=== PATIENT | female | born 1995 | race Caucasian/White ===

== ENCOUNTER 2019-10-24 06:34 | Inpatient (IN) ==
[2019-10-24 07:11] LABS: Hematocrit 34.3 % (37.0-47.0); Hemoglobin 11.4 gm/dL (12.5-16.0); Mean Cell Volume 82.7 fl (78-100); Mean Corpuscular Hemoglobin 27.5 pg (27-31); Mean Corpuscular Hgb Conc 33.2 g/dl (32-36); Mean Platelet Volume 10.7 fl (8-12.5); Neutrophil # 4.5 K/mm3 (1.3-6.0); Neutrophil % 68.5 % (42-75.0); Platelet Count 211 K/mm3 (150-450); Red Blood Count 4.15 M/mm3 (4.2-5.4); Red Cell Distribution Width 13.6 % (11.5-14.0); White Blood Count 6.6 K/mm3 (4.0-10.5)
[2019-10-24 07:19] LABS: Random Urine Total Protein 29.1 mg/dL (0-12)
[2019-10-24 07:21] LABS: Albumin * 2.5 gm/dl (3.4-5.0); Anion Gap 14.6 mmol/L (6.8-13.8); BUN/Creatinine Ratio 9.9 (9.0-21.6); Bilirubin, Total 0.1 mg/dL (0.0-1.1); Ca. Corrected For Albumin 8.4 mg/dL (8.4-10.2); Calcium * 7.5 mg/dL (7.9-10.9); Carbon Dioxide 22.2 mmol/L (24-32.6); Potassium 3.8 mmol/L (3.4-4.6); Total Protein 5.9 gm/dL (6.2-8.2)
[2019-10-24] MEDS ORDERED: BETAMETHASONE ACETATE,SOD PHOS 6 MG/ML VIAL IM ONE (07:25)
[2019-10-24] MEDS ORDERED: ACETAMINOPHEN 500 MG TABLET PO ONE (12:48)
--- NOTE | 2019-10-24 12:51 | HP ---
Chief Complaint - Chief Complaint Date of Service: 10/24/19 Time of Service: 12:33 Chief Complaint: elevated BPs History of Present Illness: 24 yo at 36 6/7 weeks presents to L&D from home where her BPs for the past several hours have been running 150-160s/90-108. This am BPs were 155/106 and 162/108 at home. Upon arrival here her BP was 138/90. Over the past few hours of observation her BPs have ranged from a low 130/75 to high of 155/96 with most in the 140's/90's. Denies epigastric pain or visual changes. She did not have a headache till just now which she rates at 5/10. Plts, liver enzymes, and Pr/Cr WNL. This complicated by anxiety, ADHD, bipolar disorder, migraines, GHTN, h/o preeclampsia, prior c/s x 2, and superficial thrombosis of LLE. S/P betamethasone 12 mg at 0820. Rh positive Rubella immune GBS negative. Medical History (Last Reviewed 10/24/19 @ 12:40 by Rosalino Schultz DO) Acute superficial venous thrombosis of left lower extremity (Resolved) possible DVT. Records requested to clarify. Eczema (Chronic) Onset Date: Unknown Sinusitis (Chronic) Onset Date: Unknown Severe anxiety with panic (Chronic) Onset Date: Unknown Bipolar disorder (manic depression) (Chronic) Onset Date: Unknown ADHD (Chronic) Onset Date: Unknown Migraines (Chronic) Onset Date: Unknown Rash Onset Date: ~11/2018 Itchy rash all over body since 11/2018 (since pt moved here from [place] in 10/05) Body piercing Onset Date: Unknown Tattoos Onset Date: Unknown Wears glasses Onset Date: Unknown DVT (deep venous thrombosis) Onset Date: ~2017 Left calf-post DVT vs superficial venous thrombosis. Obtaining records to confirm. Fractured coccyx Onset Date: 05/08/18 Preeclampsia Onset Date: ~2015 2015 & 2017 Surgical History: Surgical History (Last Reviewed 10/24/19 @ 12:40 by Rosalino Schultz DO) History of placement of ear tubes Onset Date: ~1999 Previous section Onset Date: 12/21/[id number], distress. 01/21/2018-Rpt Family History: Family History (Last Reviewed 10/24/19 @ 12:40 by Rosalino Schultz DO) Mother Heart problem Bipolar disorder Anxiety Depression Pacemaker Father Alive and well Social History: (Last Reviewed 10/24/19 @ 12:40 by Rosalino Schultz DO) Social History: adopted: No chcf: No Marital status: lives independently: Yes household members: spouse, children number of children: 2 current occupational status: other current occupational exposures/hazards: No Highest education level completed: Associate degree: academi Sexually Active: Yes Service: No Tobacco: Smoking Status: Never smoker Alcohol: alcohol intake: current alcohol intake frequency: holiday/special occasion details: No alcohol since + UPT Substance Use: substance use type: does not use Dietary Habits: caffeine: Yes caffeine comment: 1/day Type: carbonated beverages, coffee Exercise: frequency: daily duration: > 90 minutes/day Padmaja/Mosque: agree to transfusion: Yes Review Of Systems (GEN) - Review of Systems Generalized/Overall Review: Present: No Symptoms Reported EENTM: Present: No Symptoms Reported Respiratory: Present: No Symptoms Reported Cardiac: Present: No Symptoms Reported Abdominal: Present: No Symptoms Reported Genitourinary: Present: No Symptoms Reported Musculoskeletal: Present: No Symptoms Reported Neurological: Present: Headache Skin: Present: No Symptoms Reported Endocrine: Present: No Symptoms Reported Immunizations: IMMUNIZATION HX Immunizations Up to Date Yes History of Influenza Vaccine No Hx Pneumococcal Vaccination No Allergies/Adverse Reactions: Allergies Allergy/AdvReac Type Severity Reaction Status Date / Time No Known Allergies Allergy Verified 10/24/19 07:14 Home Medications: HOME MEDICATIONS triamcinolone acetonide 0.1 % topical cream 1 applic TP BID #15 g 01/21/19 [Last Taken 10/21/19] folic acid 20 mg capsule 20 mg PO DAILY 04/27/19 [Last Taken 10/23/19] aspirin 81 mg chewable tablet 81 mg PO DAILY 06/01/19 [Last Taken 10/23/19] Magnesium Oxide [Mag-Ox 400] 400 mg PO DAILY 08/29/19 [Last Taken 10/23/19] lamotrigine 25 mg tablet 50 mg PO BID 30 Days #120 tab 09/01/19 [Last Taken 10/23/19] Vits96/Iron Fum/Folic [ S] 1 tab PO DAILY 10/24/19 [Last Taken Unknown] Exam - Exam Vital Signs: Vital Signs - Last Taken Temp 36.3 C 10/24/19 12:14 Pulse 72 10/24/19 12:14 Resp 16 10/24/19 12:14 BP 143/96 H 10/24/19 12:14 Pulse Ox 100 10/24/19 12:14 Constitutional: Present: Alert, Oriented x3, Cooperative, No distress ENT Exam: Present: hearing grossly normal Neck: Present: supple, trachea midline. Absent: thyromegaly Breasts: Present: Exam deferred Respiratory: Present: lungs clear, no respiratory distress Cardiovascular/Chest: Present: normal peripheral pulses, regular rate, rhythm, no edema Abdomen: Present: soft, nontender, no rebound tenderness, other - gravid /Rectal: Present: Exam deferred Extremity: Present: no pedal edema, no calf tenderness Skin Exam: Present: normal color, warm/dry, no cyanosis Neurologic: Present: alert, normal mood/affect, oriented x 3, other - DTR 1/4, no clonus Appearance: Present: appropriate appearance, appropriate insight Eye contact: Present: cooperative, good eye contact Thoughts: Present: normal thought pattern, normal mood /affect Diagnostic Studies: Abnormal Lab Results 10/24/19 10/24/19 10/24/19 Range/Units 07:04 07:04 07:04 RBC 4.15 L (4.2-5.4) M/mm3 Hgb 11.4 L (12.5-16.0) gm/dL Hct 34.3 L (37.0-47.0) % Lymphocytes # 1.47 L (1.5-3.5) k/mm3 Carbon Dioxide 22.2 L (24-32.6) mmol/L Anion Gap 14.6 H (6.8-13.8) mmol/L Calcium 7.5 L (7.9-10.9) mg/dL ALT 16 L (19-67) U/L Total Protein 5.9 L (6.2-8.2) gm/dL Albumin 2.5 L (3.4-5.0) gm/dl U Random Total Protein 29.1 H (0-12) mg/dL U [place] Prot/Creat Ratio 200 H (0-199) mg/gm Laboratory Results WBC 6.6 K/mm3 (4.0-10.5) 10/24/19 07:04 RBC 4.15 M/mm3 (4.2-5.4) L 10/24/19 07:04 Hgb 11.4 gm/dL (12.5-16.0) L 10/24/19 07:04 Hct 34.3 % (37.0-47.0) L 10/24/19 07:04 MCV 82.7 fl (78-100) 10/24/19 07:04 MCH 27.5 pg (27-31) 10/24/19 07:04 MCHC 33.2 g/dl (32-36) 10/24/19 07:04 RDW 13.6 % (11.5-14.0) 10/24/19 07:04 Plt Count 211 K/mm3 (150-450) 10/24/19 07:04 MPV 10.7 fl (8-12.5) 10/24/19 07:04 Immature Gran % (Auto) 0.30 % (0.001-0.429) 10/24/19 07:04 Immature Gran # (Auto) 0.02 K/mm3 (0.000-0.0310) 10/24/19 07:04 Neutrophils % 68.5 % (42-75.0) 10/24/19 07:04 Lymphocytes % 22.2 % (20-51) 10/24/19 07:04 Monocytes % 8.0 % (0.0-9) 10/24/19 07:04 Eosinophils % 0.8 % (0.0-3.0) 10/24/19 07:04 Basophils % 0.2 % (0.0-1.0) 10/24/19 07:04 Nucleated RBC % 0.0 k/mm3 (0-1) 10/24/19 07:04 Neutrophils # 4.5 K/mm3 (1.3-6.0) 10/24/19 07:04 Lymphocytes # 1.47 k/mm3 (1.5-3.5) L 10/24/19 07:04 Monocytes # 0.5 k/mm3 (0.0-1.0) 10/24/19 07:04 Eosinophils # 0.1 k/mm3 (0.0-0.7) 10/24/19 07:04 Absolute Basophils 0.0 k/mm3 (0.0-0.1) 10/24/19 07:04 Sodium 139 mmol/L (132-142) 10/24/19 07:04 Plasma Sodium 139 mmol/L (130-142) 10/24/19 07:04 Potassium 3.8 mmol/L (3.4-4.6) 10/24/19 07:04 Chloride 106 mmol/L (97-106) 10/24/19 07:04 Carbon Dioxide 22.2 mmol/L (24-32.6) L 10/24/19 07:04 Anion Gap 14.6 mmol/L (6.8-13.8) H 10/24/19 07:04 BUN 7 mg/dL (3-23) 10/24/19 07:04 Creatinine 0.71 mg/dL (0.4-1.4) 10/24/19 07:04 Est GFR (Non-Af Amer) 108 mL/min (60-130) 10/24/19 07:04 BUN/Creatinine Ratio 9.9 (9.0-21.6) 10/24/19 07:04 Random Glucose 83 mg/dL (70-110) 10/24/19 07:04 Calcium 7.5 mg/dL (7.9-10.9) L 10/24/19 07:04 Calcium Adj for Albumin 8.4 mg/dL (8.4-10.2) 10/24/19 07:04 Total Bilirubin 0.1 mg/dL (0.0-1.1) 10/24/19 07:04 AST 12 U/L (0-48) 10/24/19 07:04 ALT 16 U/L (19-67) L 10/24/19 07:04 Alkaline Phosphatase 111 U/L (50-170) 10/24/19 07:04 Total Protein 5.9 gm/dL (6.2-8.2) L 10/24/19 07:04 Albumin 2.5 gm/dl (3.4-5.0) L 10/24/19 07:04 Ur Random Creatinine 145.8 mg/dL (60-200) 10/24/19 07:04 U Random Total Protein 29.1 mg/dL (0-12) H 10/24/19 07:04 U [place] Prot/Creat Ratio 200 mg/gm (0-199) H 10/24/19 07:04 NST reactive. FHT baseline 120, moderate variability, good accelerations, no decelerations. Assessment/Plan - Assessment/Plan (1) Gestational hypertension Assessment: Due to flucuations of BP will admit to L&D for close monitoring and plan on RLTCS tomorrow at 37 wks. If PHILLIPS doesn't resolve or BPs become severe range, will C/S at that time. Problem: Acute Qualifiers: Trimester: third trimester Qualified Code(s): O13.3 - Gestational [-induced] hypertension without significant proteinuria, third trimester (2) Headache Problem: Acute Qualifiers: Headache type: unspecified Headache chronicity pattern: acute headache Intractability: not intractable Qualified Code(s): R51 - Headache (3) Bipolar disorder (manic depression) Problem: Chronic Qualifiers: Active/Remission status: in remission of unspecified degree Qualified Code(s): F31.70 - Bipolar disorder, currently in remission, most recent episode unspecified (4) ADHD Problem: Chronic Qualifiers: Attention deficit-hyperactivity disorder type: unspecified Qualified Code(s): F90.9 - Attention-deficit hyperactivity disorder, unspecified type (5) Migraines Problem: Chronic Qualifiers: Migraine type: without aura Status migrainosus presence: without status migrainosus Intractability: not intractable Qualified Code(s): G43.009 - Migraine without aura, not intractable, without status migrainosus
[2019-10-24 13:21] LABS: Cocaine Ur Negative (NEGATIVE); Urine Barbiturate Negative (NEGATIVE); Urine Benzodiazepines Negative (NEGATIVE); Urine Opiates Negative (NEGATIVE); Urine PCP Negative (NEGATIVE); Urine THC Negative (NEGATIVE)
[2019-10-24] MEDS ORDERED: ACETAMINOPHEN 500 MG TABLET PO PRN (15:59)
[2019-10-24] MEDS: RINGER'S SOLUTION,LACTATED 1,000 ML IV ONE ×2 (18:10→19:03)
[2019-10-24] MEDS ORDERED: MAGNESIUM SULFATE IN WATER 50 ML, MAGNESIUM SULFATE IN WATER 50 ML IV ONE ×2 (18:19)
[2019-10-24] MEDS ORDERED: MAGNESIUM SULFATE IN WATER 1,000 ML IV SCH ×2 (18:30→21:23)
[2019-10-24] MEDS ORDERED: MIDAZOLAM HCL/PF 5 MG/ML VIAL ONE (19:01)
[2019-10-24] MEDS ORDERED: BUPIVACAINE HCL/EPINEPHRINE 50 ML VIAL IJ ONE (19:01)
[2019-10-24] MEDS ORDERED: PROPOFOL VIAL IV ONE (19:02)
[2019-10-24] MEDS ORDERED: EPINEPHrine 1 MG/ML AMPUL ONE (19:02)
[2019-10-24] MEDS ORDERED: ceFAZolin SODIUM 1 GM VIAL ONE (19:08)
[2019-10-24] MEDS ORDERED: RINGER'S SOLUTION,LACTATED 1,000 ML IV PRN (19:12)
[2019-10-24] MEDS ORDERED: ceFAZolin SODIUM/DEXTROSE,ISO 2 GM/50 ML BAG IV ONE (19:12)
[2019-10-24] MEDS ORDERED: OXYTOCIN 20 UNITS in RINGER'S SOLUTION,LACTATED 1,000 ML IV ONE (19:12)
--- NOTE | 2019-10-24 19:20 | PN ---
Progess Note - Interim Date: 10/24/19 Time: 19:14 Narrative: 10/24/19 19:15 Patient complains of headache progressing in intensity not responding to Tylenol. She further complains of feeling puffy and not right. Blood pressures running in the 150s over 90s. DTR-1/4, no clonus. No calf tenderness FHT: 130 baseline, moderate variability with good accelerations and currently no decelerations. Patient had one late deceleration approximately 1 hour ago. Contractions q 3-4 min Cervix: Not examined Impression: Intrauterine at 36 6/7 weeks. Gestational hypertension with a severe features. Prior section x2. Early labor. Plan: Patient started on magnesium sulfate and will proceed with repeat low transverse section.
--- NOTE | 2019-10-24 19:21 | ANES ---
Anesthesia Pre Procedure Eval Vitals/Labs: Last Vital Signs Temp 36.3 C 10/24/19 15:18 Pulse 72 10/24/19 15:18 Resp 16 10/24/19 15:18 BP 134/85 10/24/19 15:18 Pulse Ox 98 10/24/19 15:18 HOME MEDICATIONS triamcinolone acetonide 0.1 % topical cream 1 applic TP BID #15 g 01/21/19 [Last Taken 10/21/19] folic acid 20 mg capsule 20 mg PO DAILY 04/27/19 [Last Taken 10/23/19] aspirin 81 mg chewable tablet 81 mg PO DAILY 06/01/19 [Last Taken 10/23/19] Magnesium Oxide [Mag-Ox 400] 400 mg PO DAILY 08/29/19 [Last Taken 10/23/19] lamotrigine 25 mg tablet 50 mg PO BID 30 Days #120 tab 09/01/19 [Last Taken 10/23/19] Vits96/Iron Fum/Folic [ S] 1 tab PO DAILY 10/24/19 [Last Taken Unknown] Allergies/Adverse Reactions: Allergies Allergy/AdvReac Type Severity Reaction Status Date / Time No Known Allergies Allergy Verified 10/24/19 07:14 - Planned Procedure Planned Procedure: preclampsya Medication List Reviewed:: Yes Allergies Verified: Yes Medical History (Last Reviewed 10/24/19 @ 19:20 by Jeffry Huang CRNA) Acute superficial venous thrombosis of left lower extremity (Resolved) possible DVT. Records requested to clarify. Eczema (Chronic) Onset Date: Unknown Sinusitis (Chronic) Onset Date: Unknown Severe anxiety with panic (Chronic) Onset Date: Unknown Bipolar disorder (manic depression) (Chronic) Onset Date: Unknown ADHD (Chronic) Onset Date: Unknown Migraines (Chronic) Onset Date: Unknown Rash Onset Date: ~11/2018 Itchy rash all over body since 11/2018 (since pt moved here from [place] in 10/05) Body piercing Onset Date: Unknown Tattoos Onset Date: Unknown Wears glasses Onset Date: Unknown DVT (deep venous thrombosis) Onset Date: ~2017 Left calf-post DVT vs superficial venous thrombosis. Obtaining records to confirm. Fractured coccyx Onset Date: 05/08/18 Preeclampsia Onset Date: ~2015 2015 & 2018 Surgical History (Last Reviewed 10/24/19 @ 19:20 by Jeffry Huang CRNA) History of placement of ear tubes Onset Date: ~1999 Previous section Onset Date: 12/21/[id number], distress. 01/21/2018-Rpt Family History (Last Reviewed 10/24/19 @ 19:20 by Jeffry Huang CRNA) Mother Heart problem Bipolar disorder Anxiety Depression Pacemaker Father Alive and well - Family Anesthesia History Family History:: no untoward family reactions to anesthesia - Airway/Neck/Teeth Within Normal Limits:: Yes Teeth Condition: intact Neck Exam: full range of motion Mallampatti Score: 2 Thyromental (T-M) distance: > 6 cm Mandibulo Hyoid distance: > 3 cm - Respiratory Respiratory Physical: lungs clear Smoking Status: Never smoker Sleep Apnea currently treated: No Sleep Apnea by current assessment: No - Cardiovascular Tolerate Activity: Good Heart Sounds: S1 & S2, Regular - Anesthesia Assessment and Plan ASA Class: PS, II, E Anesthesia Type Plan: Spinal - Bilat TAP block Planned difficult intubation/equipment available: No
--- NOTE | 2019-10-24 21:11 | OR ---
Operative Report - Dictated Report Narrative: Indication: 24-year-old 3 para 2 at 36 6/7 weeks presents for repeat repeat due to gestational hypertension with severe features in early labor. status: Planned Pre Operative Diagnosis: 36 6/7-week intrauterine . Prior section x2. Gestational hypertension with severe features. Early labor. Post Operative Diagnosis: Same. Procedure: Repeat low transverse section. Abdominal scar revision - 16cm Surgeon: Sammie Schultz DO Commercial Electrician: OR Staff Anesthesia: Spinal, TAP block Estimated Blood Loss: 500 mL Urine Output: 150 mL clear urine Fluids Replacement: 1400 mL Drains: Bray to gravity Surgical Complications: None Specimens: Placenta to pathology Findings: Female born at 1956 on 10/24/2018 with Apgars 9 and 9, weighing 2428 g in cephalic presentation. Right foot cord x1. Uterus with extremely thin lower uterine segment (2 mm thick), normal tubes and ovaries Technique: The patient was taken to the operating room and placed in dorsal supine position with a left lateral tilt. After adequate spinal anesthesia, bray catheter inserted, SCDs placed, and 2 g of Ancef given preoperatively, the previous scar was excised in an elliptical fashion and the abdominal cavity was entered using sharp and blunt dissection. Two rolled laps were placed in the pericolic gutters on either side of the uterus. A transverse incision was made in the lower uterine segment and extended laterally and upwardly with digital traction. Clear fluid was noted upon amniotomy. Vigorously crying was delivered easily. After approximately 30 seconds the cord was clamped and cut and infant was handed off to awaiting bottle labeler. The placenta was allowed to deliver spontaneously. The uterus was cleared of clot and debris. Uterine incision was closed with 0 Vicryl using a running stitch. A second imbricating layer was placed. A couple places in the middle of the incision required 2 [id number] sutures to control bleeding. Excellent hemostasis was noted. The rolled laps were removed from the abdominal cavitiy. The peritoneum was closed with a running 3-0 Monocryl. The same suture was used to approximate the rectus and pyramidalis muscles. The fascia was closed with a running 0 Vicryl. The subcutaneous layer was closed with a running 3-0 Monocryl. The same suture was used to approximate the subdermal layer. The skin was closed with a running 4-0 Monocryl and Dermabond. Sponge, lap, needle, and instrument count were correct x 2. Disposition: To post anesthesia care unit in good condition
[2019-10-24] MEDS ORDERED: SENNOSIDES 8.6 MG TABLET PO PRN (21:23)
[2019-10-24] MEDS ORDERED: BISACODYL 10 MG SUPP.RECT RC PRN (21:23)
[2019-10-24] MEDS ORDERED: diphenhydrAMINE HCL 25 MG CAPSULE PO PRN (21:23)
[2019-10-24] MEDS ORDERED: IBUPROFEN 800 MG TABLET PO PRN (21:23)
[2019-10-24] MEDS ORDERED: SIMETHICONE 80 MG TAB.CHEW PO PRN (21:23)
[2019-10-24] MEDS ORDERED: ONDANSETRON HCL/PF 2 MG/ML VIAL IV PRN (21:23)
--- NOTE | 2019-10-24 21:26 | PN ---
Progess Note - Interim Date: 10/24/19 Time: 21:26 History for MU History for MU Definition: * The number of deliveries resulting in a live the patient experienced prior to current hospitalization * The previous delivery of live twins or any live multiple gestation is considered one live event. *If primagravida or nulliparous is documented select zero for the number of previous live births. Live Events: Live Events: 2
--- NOTE | 2019-10-24 21:37 | ANES ---
Post Anesthesia Discharge - Transfer of Care Transfer of Care handoff given to nurse: Yes - Discharge from PACU Discharge from PACU when meets criteria: Yes
--- NOTE | 2019-10-24 21:37 | ANES ---
Post Anesthesia Assessment - Vital Signs Vitals: Last Vital Signs Temp 36.4 C 10/24/19 21:00 Pulse 103 H 10/24/19 21:20 Resp 16 10/24/19 21:20 BP 142/68 H 10/24/19 21:20 Pulse Ox 98 10/24/19 21:20 Airway Patency: Normal - Mental Status Level Of Consciousness: Awake - Pain Level Pain Score: 0 - N/V Assessment Nausea/Vomiting Presence: None Dehydration:: No
--- NOTE | 2019-10-24 21:41 | ANES ---
Anesthesia Procedure Note Procedure Note: ANESTHESIA PROCEDURE NOTE Date of procedure: 10/24/2019. Time of procedure: 2100. Performed by: John Huang CRNA Water Mechanic: Kirti Polanco RN . Preprocedure diagnosis: Previous . Post procedure diagnosis: Same. Procedure: Ultrasound-guided bilateral tap block Indications: Postoperative analgesia. Findings: Patient was placed in a supine position in the PACU. Patient's right abdominal wall was prepped with ChloraPrep. Ultrasound was utilized to identify the fascial layer between the internal oblique and trans-abdominus muscles. 20- gauge 4 inch regional block needle was advanced under ultrasound guidance until tip of needle was positioned just distal to fascial layer. 20 mL of 0.25% Marcaine with epinephrine 1-200,000 was injected with adequate spread of local anesthesia noted. Procedure was then repeated on patient's left side. EBL: Minimal. Fluids: N/A. Specimen: N/A. Post procedure condition: The patient tolerated the procedure well. No complications were noted. Thank you for this consultation John Huang CRNA
[2019-10-24] MEDS: IBUPROFEN 800 MG TABLET PO PRN (22:05)
[2019-10-24] MEDS: oxyCODONE HCL/ACETAMINOPHEN 1 TAB TABLET PO PRN (22:05)
[2019-10-24] MEDS: lamoTRIgine 100 MG TABLET PO SCH (23:36)
[2019-10-25] MEDS: oxyCODONE HCL/ACETAMINOPHEN 1 TAB TABLET PO PRN ×7 (01:31→23:17)
[2019-10-25] MEDS: IBUPROFEN 800 MG TABLET PO PRN ×3 (04:36→18:49)
[2019-10-25] MEDS: ENOXAPARIN SODIUM 40 MG/0.4 ML SYRG SC SCH (08:21)
[2019-10-25] MEDS: DOCUSATE SODIUM 100 MG CAPSULE PO SCH ×2 (08:21→20:52)
[2019-10-25] MEDS: MAGNESIUM OXIDE 400 MG TABLET PO SCH (08:50)
[2019-10-25] MEDS: PRENATAL VITS96/IRON FUM/FOLIC 1 TAB TABLET PO SCH (08:50)
[2019-10-25] MEDS: lamoTRIgine 100 MG TABLET PO SCH ×2 (08:59→20:52)
--- NOTE | 2019-10-25 14:58 | PN ---
Subjective - Date and Time Seen Date: 10/25/19 Time: 14:54 Objective - Vitals Vitals: Last Vital Signs Temp 36.3 C 10/25/19 14:00 Pulse 73 10/25/19 14:00 Resp 16 10/25/19 14:00 BP 119/73 10/25/19 14:00 Pulse Ox 97 10/25/19 14:00 Patient denies complaints. Specifically denies headache, visual changes, or epigastric pain. Tolerating regular diet. Ambulating without difficulty. Pain well controlled. Lochia wnl. Abdomen - soft, appropriately tender Incision -clean, dry, intact uterus - firm, at umbilicus -1 No calf tenderness. DTR-/. No clonus. Impression: Post op day #1 s/p repeat section. Abdominal scar revision. Gestational hypertension with severe features-resolved. Plan: Stop magnesium sulfate and begin ambulation for hours afterwards. DC Crawford and hourly I's and O's. Continue daily weight and observing closely for preeclampsia signs/symptoms. Assessment/Plan - Problems/Diagnosis (1) Gestational hypertension Problem: Acute Qualifiers: Trimester: third trimester Qualified Code(s): O13.3 - Gestational [-induced] hypertension without significant proteinuria, third trimester (2) Headache Problem: Acute Qualifiers: Headache type: unspecified Headache chronicity pattern: acute headache Intractability: not intractable Qualified Code(s): R51 - Headache (3) Bipolar disorder (manic depression) Problem: Chronic Qualifiers: Active/Remission status: in remission of unspecified degree Qualified Code(s): F31.70 - Bipolar disorder, currently in remission, most recent episode unspecified (4) ADHD Problem: Chronic Qualifiers: Attention deficit-hyperactivity disorder type: unspecified Qualified Code(s): F90.9 - Attention-deficit hyperactivity disorder, unspecified type (5) Migraines Problem: Chronic Qualifiers: Migraine type: without aura Status migrainosus presence: without status migrainosus Intractability: not intractable Qualified Code(s): G43.009 - Migraine without aura, not intractable, without status migrainosus
[2019-10-26] MEDS: IBUPROFEN 800 MG TABLET PO PRN ×4 (01:24→19:48)
[2019-10-26] MEDS: oxyCODONE HCL/ACETAMINOPHEN 1 TAB TABLET PO PRN ×6 (02:32→21:20)
[2019-10-26] MEDS: ENOXAPARIN SODIUM 40 MG/0.4 ML SYRG SC SCH (06:48)
[2019-10-26] MEDS: DOCUSATE SODIUM 100 MG CAPSULE PO SCH ×3 (07:26→21:20)
[2019-10-26] MEDS: PRENATAL VITS96/IRON FUM/FOLIC 1 TAB TABLET PO SCH ×2 (07:26→10:12)
[2019-10-26] MEDS: lamoTRIgine 100 MG TABLET PO SCH ×3 (07:26→21:22)
[2019-10-26] MEDS: MAGNESIUM OXIDE 400 MG TABLET PO SCH ×2 (07:26→10:12)
--- NOTE | 2019-10-26 08:56 | PN ---
Subjective - Date and Time Seen Date: 10/26/19 Time: 08:52 Objective - Vitals Vitals: Last Vital Signs Temp 36.6 C 10/26/19 06:57 Pulse 85 10/26/19 06:57 Resp 18 10/26/19 06:57 BP 122/79 10/26/19 06:57 Pulse Ox 97 10/26/19 06:57 [Patient denies complaints. Ambulating well. Tolerating regular diet. Pain well controlled.] Lochia wnl. Abdomen - soft, appropriately tender Incision - [clean, dry, intact] Uterus - firm, at umbilicus -[2] No calf tenderness Impression: Post op day #2 s/p repeat section. Gestational hypertension with severe features-resolved. Bipolar disorder. Plan: Continue routine post-operative/ care. Continue watch closely for signs or symptoms of severe preeclampsia. Cauti Physician Documentation - Urinary Catheter Management Urethral (Crawford) Date of Insertion: 10/24/19 Time of Insertion: 19:00 Date of Removal: 10/25/19 Time of Removal: 18:01 Assessment/Plan - Problems/Diagnosis (1) Gestational hypertension Problem: Acute Qualifiers: Trimester: third trimester Qualified Code(s): O13.3 - Gestational [-induced] hypertension without significant proteinuria, third trimester (2) Headache Problem: Acute Qualifiers: Headache type: unspecified Headache chronicity pattern: acute headache Intractability: not intractable Qualified Code(s): R51 - Headache (3) Bipolar disorder (manic depression) Problem: Chronic Qualifiers: Active/Remission status: in remission of unspecified degree Qualified Co de(s): F31.70 - Bipolar disorder, currently in remission, most recent episode unspecified (4) ADHD Problem: Chronic Qualifiers: Attention deficit-hyperactivity disorder type: unspecified Qualified Code(s): F90.9 - Attention-deficit hyperactivity disorder, unspecified type (5) Migraines Problem: Chronic Qualifiers: Migraine type: without aura Status migrainosus presence: without status migrainosus Intractability: not intractable Qualified Code(s): G43.009 - Migraine without aura, not intractable, without status migrainosus
[2019-10-27] MEDS: oxyCODONE HCL/ACETAMINOPHEN 1 TAB TABLET PO PRN (00:39)
[2019-10-27] MEDS: IBUPROFEN 800 MG TABLET PO PRN ×2 (01:57→09:06)
[2019-10-27] MEDS ORDERED: ACETAMINOPHEN 325 MG TABLET PO ONE ×2 (04:17→11:16)
[2019-10-27 07:32] VITALS: BP 142/91
--- NOTE | 2019-10-27 07:43 | PN ---
Subjective - Date and Time Seen Date: 10/27/19 Time: 07:33 Objective - Vitals Vitals: Last Vital Signs Temp 36.5 C 10/27/19 06:53 Pulse 60 10/27/19 06:53 Resp 20 10/27/19 06:53 BP 142/91 H 10/27/19 06:53 Pulse Ox 98 10/27/19 06:53 Patient denies complaints. Ambulating without difficulty. Tolerating regular diet. Pain well controlled. Lochia wnl. Abdomen - soft, appropriately tender Incision -clean, dry, intact uterus - firm, at umbilicus -3 no calf tenderness Impression: Post op day #3 s/p repeat section. Gestational hypertension with severe features-resolved. Bipolar disorder-stable Plan: Routine discharge instructions. Preeclampsia precautions. Follow-up in 1 week for incision and blood pressure check. Cauti Physician Documentation - Urinary Catheter Management Urethral (Crawford) Date of Insertion: 10/24/19 Time of Insertion: 19:00 Date of Removal: 10/25/19 Time of Removal: 18:01 Assessment/Plan - Problems/Diagnosis (1) Gestational hypertension Problem: Acute Qualifiers: Trimester: third trimester Qualified Code(s): O13.3 - Gestational [-induced] hypertension without significant proteinuria, third trimester (2) Headache Problem: Acute Qualifiers: Headache type: unspecified Headache chronicity pattern: acute headache Intractability: not intractable Qualified Code(s): R51 - Headache (3) Bipolar disorder (manic depression) Problem: Chronic Qualifiers: Active/Remission status: in remission of unspecified degree Qualified Code(s): F31.70 - Bipolar disorder, currently in remission, most recent episode unspecified (4) ADHD Problem: Chronic Qualifiers: Attention deficit-hyperactivity disorder type: unspecified Qualified Code(s): F90.9 - Attention-deficit hyperactivity disorder, unspecified type (5) Migraines Problem: Chronic Qualifiers: Migraine type: without aura Status migrainosus presence: without status migrainosus Intractability: not intractable Qualified Code(s): G43.009 - Migraine without aura, not intractable, without status migrainosus
[2019-10-27] MEDS: ENOXAPARIN SODIUM 40 MG/0.4 ML SYRG SC SCH (07:54)
[2019-10-27] MEDS: PRENATAL VITS96/IRON FUM/FOLIC 1 TAB TABLET PO SCH (08:00)
[2019-10-27] MEDS: MAGNESIUM OXIDE 400 MG TABLET PO SCH (08:01)
[2019-10-27] MEDS: DOCUSATE SODIUM 100 MG CAPSULE PO SCH (08:01)
[2019-10-27] MEDS: lamoTRIgine 100 MG TABLET PO SCH (08:01)
== END 2019-10-27 14:25 | disposition home or self-care (01) | DRG 787 ==
LOC: OBCLINIC 06:34 → OB 11:13
PROVIDERS: ADMIT Obstetrics & Gynecology; ATTEND Obstetrics & Gynecology
CPT/HCPCS: 36415; 59025; 80053; 80307; 82570; 84155; 84156; 85025; 88307

== ENCOUNTER 2019-10-29 13:35 | Observation (INO) ==
[2019-10-29] MEDS ORDERED: ACETAMINOPHEN 500 MG TABLET PO ONE (14:41)
[2019-10-29] MEDS ORDERED: hydrOXYzine PAMOATE 50 MG CAPSULE PO PRN (14:41)
--- NOTE | 2019-10-29 19:40 | HP ---
Chief Complaint - Chief Complaint Date of Service: 10/29/19 Time of Service: 19:21 Chief Complaint: elevated blood pressures and headache History of Present Illness: 24 yo s/p RLTCS on 10/24/19 at 36 6/7 wks for gestational HTN with severe features presents to L&D complaining of BPs at home 160-180/90-115 and headache. Upon arrival this afternoon her BP was 116/68 and her headache resolved with Vistaril 50mg PO and Tylenol 1000mg. Patient had similar complaint late last pm but upon arrival to L&D her blood pressures were mostly normal with an occasional mildly elevated BP and her headache resolved with IV Benadryl and Reglan. Her protein/creatinine level was elevated to 450, but LFTs and platelets were WNL. Patient has been sleeping ever since taking the Vistaril (4 hours). Her blood pressures are very labile from 113/64 to 164/104. Over the past 4 hours only 8 of the 13 BPS have been elevated and only 2 have been in the severe range. Patient's pulse has been 46-62. Medical History (Last Reviewed 10/29/19 @ 19:34 by Rosalino Schultz DO) Acute superficial venous thrombosis of left lower extremity (Resolved) possible DVT. Records requested to clarify. Eczema (Chronic) Onset Date: Unknown Sinusitis (Chronic) Onset Date: Unknown Severe anxiety with panic (Chronic) Onset Date: Unknown Bipolar disorder (manic depression) (Chronic) Onset Date: Unknown ADHD (Chronic) Onset Date: Unknown Migraines (Chronic) Onset Date: Unknown Rash Onset Date: ~11/2018 Itchy rash all over body since 11/2018 (since pt moved here from [place] in 10/05) Body piercing Onset Date: Unknown Tattoos Onset Date: Unknown Wears glasses Onset Date: Unknown DVT (deep venous thrombosis) Onset Date: ~2017 Left calf-post DVT vs superficial venous thrombosis. Obtaining records to confirm. Fractured coccyx Onset Date: 05/08/18 History of delivery Onset Date: 10/24/19 @ 36 weeks Preeclampsia Onset Date: ~2015 2015 & 2018 Surgical History: Surgical History (Last Reviewed 10/29/19 @ 19:34 by Rosalino Schultz DO) History of placement of ear tubes Onset Date: ~1999 Previous section Onset Date: 12/21/[id number], distress. 01/21/2018-Rpt . .7.-Rpt C- section w/abdominal scar revision, GHTN w/severe features. Family History: Family History (Last Reviewed 10/29/19 @ 19:34 by Rosalino Schultz DO) Mother Heart problem Bipolar disorder Anxiety Depression Pacemaker Father Alive and well Social History: (Last Reviewed 10/29/19 @ 19:34 by Rosalino Schultz DO) Social History: adopted: No long-term: No Marital status: lives independently: Yes household members: spouse, children number of children: 2 current occupational status: other current occupational exposures/hazards: No Highest education level completed: Associate degree: academi Sexually Active: Yes Service: No Tobacco: Smoking Status: Never smoker Alcohol: alcohol intake: current alcohol intake frequency: holiday/special occasion details: No alcohol since + UPT Substance Use: substance use type: does not use Dietary Habits: caffeine: Yes caffeine comment: 1/day Type: carbonated beverages, coffee Exercise: frequency: daily duration: > 90 minutes/day Padmaja/Taoist: agree to transfusion: Yes Review Of Systems (GEN) - Review of Systems Generalized/Overall Review: Present: No Symptoms Reported EENTM: Present: No Symptoms Reported Respiratory: Present: No Symptoms Reported Cardiac: Present: No Symptoms Reported Abdominal: Present: No Symptoms Reported Genitourinary: Present: No Symptoms Reported Musculoskeletal: Present: No Symptoms Reported Neurological: Present: Headache, Anxiety Skin: Present: No Symptoms Reported Endocrine: Present: No Symptoms Reported Immunizations: IMMUNIZATION HX Immunizations Up to Date Yes History of Influenza Vaccine No Hx Pneumococcal Vaccination No Allergies/Adverse Reactions: Allergies Allergy/AdvReac Type Severity Reaction Status Date / Time No Known Allergies Allergy Verified 10/28/19 21:55 Home Medications: HOME MEDICATIONS Magnesium Oxide [Mag-Ox 400] 400 mg PO DAILY 08/29/19 [Last Taken 10/23/19] lamotrigine 25 mg tablet 50 mg PO BID 30 Days #120 tab 09/01/19 [Last Taken 10/23/19] Vits96/Iron Fum/Folic [ S] 1 tab PO DAILY 10/24/19 [Last Taken Unknown] Ferrous Sulfate 325 mg PO DAILY #60 tab 10/27/19 [Last Taken Unknown] Ibuprofen [Motrin] 200 - 800 mg PO Q6H PRN #100 tab 10/27/19 [Last Taken Unknown] oxyCODONE HCL/ACETAMINOPHEN [Percocet 5 MG/325 MG] 1 tab PO Q4H PRN #10 tab 10/27/19 [Last Taken Unknown] Acetaminophen [Tylenol] 1,000 mg PO BID PRN 10/29/19 [Last Taken Unknown] Exam - Exam Vital Signs: Vital Signs - Last Taken Temp 37.8 C 10/29/19 17:50 Pulse 96 10/29/19 17:50 Resp 16 10/29/19 17:50 BP 124/57 10/29/19 17:50 Pulse Ox 94 10/29/19 17:50 Constitutional: Present: Alert, Oriented x3, Cooperative, No distress ENT Exam: Present: hearing grossly normal Neck: Present: non-tender. Absent: thyromegaly Breasts: Present: Exam deferred Respiratory: Present: lungs clear, no respiratory distress Cardiovascular/Chest: Present: regular rate, rhythm, no edema Abdomen: Present: soft, nontender, no rebound tenderness, other - incision healing well /Rectal: Present: Exam deferred Extremity: Present: no pedal edema, no calf tenderness Skin Exam: Present: normal color, warm/dry, no cyanosis Lymphatic: Present: no adenopathy Neurologic: Present: alert, normal mood/affect, oriented x 3, other - DTR - 2/4, no clonus Appearance: Present: appropriate appearance, appropriate insight Eye contact: Present: cooperative, good eye contact Thoughts: Present: normal thought pattern, normal mood /affect Assessment/Plan - Assessment/Plan (1) Preeclampsia in period Assessment: This is patient's second time in the past 24 hours to present with elevated blood pressures and headache. Her blood pressures and pulse are labile. Suspect severely elevated blood pressures due to anxiety. At this time will admit for 23-hour observation and hold blood pressure medication due to severe swing in blood pressures. Problem: Acute (2) Headache Problem: Acute Qualifiers: Headache type: unspecified Headache chronicity pattern: episodic headache Intractability: intractable Qualified Code(s): R51 - Headache
[2019-10-29] MEDS ORDERED: ENOXAPARIN SODIUM 40 MG/0.4 ML SYRG SC SCH (20:00)
[2019-10-29] MEDS: oxyCODONE HCL/ACETAMINOPHEN 1 TAB TABLET PO PRN (20:31)
[2019-10-29] MEDS: lamoTRIgine 100 MG TABLET PO SCH (21:04)
[2019-10-30] MEDS: IBUPROFEN 800 MG TABLET PO PRN ×2 (01:09→09:07)
[2019-10-30] MEDS: oxyCODONE HCL/ACETAMINOPHEN 1 TAB TABLET PO PRN (06:10)
[2019-10-30 07:54] VITALS: BP 143/96
[2019-10-30] MEDS ORDERED: FERROUS SULFATE 325 MG TABLET PO SCH (09:00)
[2019-10-30] MEDS ORDERED: MAGNESIUM OXIDE 400 MG TABLET PO SCH (09:00)
[2019-10-30] MEDS ORDERED: PRENATAL VITS96/IRON FUM/FOLIC 1 TAB TABLET PO SCH (09:00)
[2019-10-30] MEDS: lamoTRIgine 100 MG TABLET PO SCH (09:07)
--- NOTE | 2019-10-30 09:51 | PN ---
Subjective - Date and Time Seen Date: 10/30/19 Time: 09:46 Subjective Narrative: Patient feels much better after getting a good night's rest. Admits that most of her blood pressure elevations are probably due to anxiety. Objective - Review of Systems Generalized/Overall Review: Reports: No Symptoms Reported EENTM: Reports: No Symptoms Reported Respiratory: Reports: No Symptoms Reported Cardiac: Reports: No Symptoms Reported Abdominal: Reports: No Symptoms Reported Genitourinary Symptoms: Reports: No Symptoms Reported Musculoskeletal Complaints: Reports: No Symptoms Reported Neurological: Reports: No Symptoms Reported Skin: Reports: No Symptoms Reported Endocrine: Reports: No Symptoms Reported - Vitals Vitals: Last Vital Signs Temp 36.0 C 10/30/19 07:30 Pulse 73 10/30/19 07:30 Resp 18 10/30/19 07:30 BP 143/96 H 10/30/19 07:30 Pulse Ox 99 10/30/19 07:30 - Exam Constitutional: Present: Alert, Oriented x3, Cooperative, No distress ENT Exam: Present: hearing grossly normal Breasts: Present: Exam deferred Respiratory: Present: lungs clear, no respiratory distress Cardiovascular/Chest: Present: regular rate, rhythm, no edema Abdomen: Present: soft, nontender, no rebound tenderness /Rectal: Present: Exam deferred Extremity: Present: no pedal edema, no calf tenderness Skin Exam: Present: normal color, warm/dry, no cyanosis Neurologic: Present: normal mood/affect, oriented x 3 Appearance: Present: appropriate appearance, appropriate insight Eye contact: Present: cooperative, good eye contact Thoughts: Present: normal thought pattern, normal mood /affect Assessment/Plan - Problems/Diagnosis (1) Preeclampsia in period Problem: Acute Narrative: Patient's blood pressures have remained stable throughout the night. She has no headache, visual changes, or epigastric pain. Discussed patient situation with Christine Luis and psychiatry who recommends starting patient on Ativan 0.5 mg twice daily. Appointment will be made with psychiatry and next available. Follow-up in the office in 1 week for routine follow-up. Pre eclampsia precautions. (2) Anxiety Problem: Acute (3) Headache Problem: Resolved Qualifiers: Headache type: unspecified Headache chronicity pattern: episodic headache Intractability: intractable Qualified Code(s): R51 - Headache (4) Bipolar disorder (manic depression) Problem: Chronic Qualifiers: Active/Remission status: in remission of unspecified degree Qualified Code(s): F31.70 - Bipolar disorder, currently in remission, most recent episode unspecified
--- NOTE | 2019-10-30 10:03 | DS ---
(1) Preeclampsia in period Problem: Acute (2) Anxiety Problem: Acute (3) Headache Problem: Resolved Qualifiers: Headache type: unspecified Headache chronicity pattern: episodic headache Intractability: intractable Qualified Code(s): R51 - Headache (4) Bipolar disorder (manic depression) Problem: Chronic Qualifiers: Active/Remission status: in partial remission Most recent bipolar episode type: most recent episode unspecified type Qualified Code(s): F31.70 - Bipolar disorder, currently in remission, most recent episode unspecified Date of Discharge:: 10/30/19 Description of Stay: Patient was admitted for elevated blood pressures in severe range and headache complicating preeclampsia. Upon arrival to labor and delivery, blood pressures were only mildly elevated, with most being low normal. Her headache resolved with Vistaril and Tylenol. Because this was her second time coming to labor and delivery within 12-hour, she was kept overnight for prolonged observation to assure her blood pressures remained normal. Because of the severe fluctuation in her blood pressures and low resting pulse in the 40s and 50s, she was not placed on blood pressure medication at this time. Instead she will be started on a low-dose anxiolytic. Procedures Performed: none Discharge Location: Home Disposition: Home self-care Condition: Good Discharge Activity: No Lifting - >30 lbs till 6 weeks post-op Discharge Diet: General/regular food Referrals: Winifred Bean DO [Primary Care Provider] - Christine Gomez ARNP [[facility]] - Problem Oriented Discharge Instructions to Patient/Family: Generalized Anxiety Disorder Additional Patient Instructions (free text): Kerry you have an appointment with Dr. Schultz next week on the at 3:15 PM. Please call if you have any questions or concerns. Prescriptions (Any new or edited meds): LORazepam [Ativan] 0.5 mg PO BID PRN #60 tab PRN Reason: Anxiety Transmission Status: Received by [facility] #[id number] Complete Home Medications List: Complete Home Medication List: Magnesium Oxide [Mag-Ox 400] 400 mg PO DAILY 08/29/19 lamotrigine 25 mg tablet 50 mg PO BID 30 Days #120 tab 09/01/19 Vits96/Iron Fum/Folic [ S] 1 tab PO DAILY 10/24/19 Ferrous Sulfate 325 mg PO DAILY #60 tab 10/27/19 Ibuprofen [Motrin] 200 - 800 mg PO Q6H PRN #100 tab 10/27/19 oxyCODONE HCL/ACETAMINOPHEN [Percocet 5 MG/325 MG] 1 tab PO Q4H PRN #10 tab 10/27/19 Acetaminophen [Tylenol] 1,000 mg PO BID PRN 10/29/19 LORazepam [Ativan] 0.5 mg PO BID PRN #60 tab 10/30/19
== END 2019-10-30 10:30 | disposition home or self-care (01) ==
LOC: INTOOBSV 13:35 → OBSVTOIN 13:35 → OB 13:35
PROVIDERS: ADMIT Obstetrics & Gynecology; ATTEND Obstetrics & Gynecology
CPT/HCPCS: 96372; G0378